=== PATIENT | female | born 1970 | race Caucasian/White ===

== ENCOUNTER 2016-12-26 11:20 | Day surgery (SDC) | payer BC ==
[2016-12-23 13:06] LABS: HEMATOCRIT 39.5 % (36.0-48.0); HEMOGLOBIN 13.1 g/dL (12.0-16.0)
[~2016-12-26] VITALS: Ht 160 cm; Wt 67.8 kg
--- NOTE | ~2016-12-26 | OP ---
Record Of Operation [facility] [address] [place]. [address] NAME: DANETTE RAMSEY : 70 STATUS : [facility]#: [id number] AGE: 46 ADM/REG DATE : 12/26/16 MR#: [id number] REPORT SERV DATE: 12/26/16 DICTATED BY: ROMÁN WARREN DATE: 12/26/16 REPORT STATUS : Draft TRANSCRIBED BY: MODAleks DATE: 12/26/16 DATE OF PROCEDURE: 12/26/2016 PREOPERATIVE DIAGNOSES: Right distal radius fracture extra-articular with displacement. POSTOPERATIVE DIAGNOSIS: Right distal radius fracture extra-articular with displacement. PROCEDURE: Open reduction and internal fixation with manipulation of the right distal radius fracture on the right wrist with internal fixation with a variable angle Synthes volar wrist plate. ANESTHESIA: General. INDICATION: The patient is a 46-year-old female who sustained an injury in [place] approximately three weeks ago, was seen and treated initially with a splint, here now for further evaluation. DESCRIPTION OF PROCEDURE: Under appropriate anesthetic, the patient was prepped and draped in usual fashion. At this time, under appropriate anesthesia an incision was made on the volar surface of the right wrist. It was taken down sharply through the soft tissue over the FCR tendon. At this point, I identified the muscle overlying the radius which I then carefully cauterized into. Upon doing this, I identified the fracture. Using the bone periosteal elevator, I opened up the periosteum, freed this up, and then cleaned out the fracture site. It was somewhat stuck and I had to manipulate this dorsally and then I obtained a proper position. A plate with three holes proximally was brought down to the field. It was initially attached distally to the distal radius, set, and then rotated down. The center slide screw was placed at this time. Once this was done, we verified it with Fluoroscan. We had excellent position. Translocation was noticed to be normal. I then put the remaining screws. Multiple locking screws were placed distally due to the dorsal comminution and proximally two lockers and one compression screw was placed. Once this done, x-rays were used once again to verify the placement of this and it had excellent reduction with correction of the radial inclination in the volar tilt. The wound was then irrigated. I closed it with deep Monocryl and a running Monocryl in the skin, and I injected the fourth compartment radial side of the wrist as well as the incision site with 20 mL of Marcaine. The patient tolerated this procedure well and they were no complications. MAYA/JOAQUINA Román Warren M.D. / [id number] Record Of [address] [address] NAME: DANETTE RAMSEY : 70 STATUS : [facility]#: [id number] AGE: 46 ADM/REG DATE : 12/26/16 MR#: [id number] REPORT SERV DATE: 12/26/16 DICTATED BY: ROMÁN WARREN DATE: 12/26/16 REPORT STATUS : Draft TRANSCRIBED BY: JOAQUINA DATE: 12/26/16 CC: Joanne Parson M.D.
[~2016-12-26 11:20] MED LIST: ACET500CAP PO; CALTRA600D PO; GLUCCHONDR PO; IBU-200200 MG PO; MULTIVITAMI1 PO; [UNRECOGNIZED DRUG - REMARK] PO
== END 2016-12-26 18:38 | disposition home or self-care (01) ==
LOC: SDC 11:20
PROC: 0PSH04Z Reposition Right Radius with Internal Fixation Device, Open Approach (ICD-10-PCS; principal; 2016-12-26 13:15)
DX: S52.551A Other extraarticular fracture of lower end of right radius, initial encounter for closed fracture (principal); H91.90 Unspecified hearing loss, unspecified ear; J32.9 Chronic sinusitis, unspecified; Z98.890 Other specified postprocedural states; Z87.442 Personal history of urinary calculi; Z88.8 Allergy status to other drugs, medicaments and biological substances; Z79.899 Other long term (current) drug therapy
CPT/HCPCS: 84703; 85014; 85018; A9270-GY; C1713; J0690; J2250; J2270; J2405; J2710; J3010